=== PATIENT | female | born 1985 | race Caucasian/White ===

== ENCOUNTER 2017-04-23 04:00 | Emergency (ER) | payer MEDICAID ==
[~2017-04-23] VITALS: Ht 165.1 cm; Wt 85.0 kg
[~2017-04-23 04:00] MED LIST: ACET500C5 PO; IRON1TAB78 PO; PREN1TAB31 PO
[2017-04-23 04:05] VITALS: Ht 165.1 cm; Wt 85.0 kg
--- NOTE | 2017-04-23 04:57 | ERD ---
ER Documentation Chief Complaint Date/Time DATE: 04/23/17 TIME: 04:48 Chief Complaint swelling right side of neck x 3 days. also c/o fever (EMMANUEL SILVERIO) HPI 31-year-old female presents emergency department for right neck swelling for 3 days. She also complains of fever and difficulty swallowing. Denies headache, dizziness, blurred vision, shoulder pain, chest pain, back pain , abdominal pain, nausea, vomiting, diarrhea, constipation, urinary symptoms, , possibility of being , loss of bowel bladder control, recent exposure to any illness, recent antibiotic use in the last 3 months, numbness or tingling sensation. No known drug allergies. No past medical history. No surgeries. Does not take any prescription medication at home. Social: Not working at this time. Denies smoking, use of alcohol, use of illegal drugs. (EMMANUEL SILVERIO) ROS All systems reviewed and are negative except as per history of present illness. (EMMANUEL SILVERIO) Medications Home Meds Active Scripts Ondansetron Hcl* (Zofran*) 4 Mg Tablet, 4 MG PO Q8H Y for NAUSEA AND/OR VOMITING , #30 TAB Prov:EMMANUEL SILVERIO 04/23/17 Acetaminophen* (Tylophen*) 500 Mg Capsule, 1 CAP PO Q6H Y for PAIN AND OR ELEVATED TEMP, #20 CAP Prov:EMMANUEL SILVERIO F 04/23/17 Ibuprofen* (Motrin*) 800 Mg Tab, 800 MG PO Q8 Y for PAIN AND OR ELEVATED TEMP, # 30 TAB Prov:EMMANUEL SILVERIO 04/23/17 Clindamycin Hcl* (Clindamycin Hcl*) 300 Mg Capsule, 300 MG PO TID for 10 Days, CAP Prov:EMMANUEL SILVERIO F 04/23/17 Acetaminophen* (Tylophen*) 500 Mg Capsule, 2 CAP PO Q8H Y for PAIN AND OR ELEVATED TEMP, #20 CAP Prov:JENNIFER ABRAMS MD 06/21/15 Reported Medications Iron,Carbonyl/Vit C/Vit B12/Fa (IRON 100 PLUS TABLET) 1 Each Tablet, 1 EACH PO DAILY 04/27/13 Vits #90-Iron Fum-FA ( Formula) 1 Each Tablet, 1 EACH PO DAILY 04/27/13 Allergies Allergies: Coded Allergies: No Known Allergies (Verified Allergy, Unknown, 04/23/17) PMhx/Soc Hx Alcohol Use: No Hx Substance Use: No Hx Tobacco Use: No (EMMANUEL SILVERIO) Physical Exam Vitals Vital Signs Date Time Temp Pulse Resp B/P Pulse Ox O2 Delivery O2 Flow Rate FiO2 04/23/17 08:49 98.3 73 18 107/55 97 Room Air 04/23/17 04:05 103.2 106 20 134/75 97 (KENNEDY BARR MD) Physical Exam Const: [] Head: Atraumatic Eyes: Normal Conjunctiva ENT: Normal External Ears. Nose and Mouth. Right ear: TM is erythematous. No discharge. No bleeding. Left ear: TM is not erythematous. No bleeding. No discharge. No hearing loss bilaterally. Throat: Uvula is in midline and mildly displaced. Right tonsils +3 with redness and exudate. Left tonsil is + 2 with redness and exudate. Neck: Full range of motion..~ No meningismus. Resp: Clear to auscultation bilaterally Cardio: Regular rate and rhythm, no murmurs Abd: Soft, non tender, non distended. Normal bowel sounds Skin: No petechiae or rashes Back: No midline or flank tenderness Ext: No cyanosis, or edema Neur: Awake and alert Psych: Normal Mood and Affect (EMMANUEL SILVERIO) Result Diagram: 04/23/1752304/23/17523 Results 24 hrs Laboratory Tests Test 04/23/17 05:24 White Blood Count 9.610^3/ul Red Blood Count 4.6810^6/ul Hemoglobin 13.3g/dl Hematocrit 40.3% Mean Corpuscular Volume 86.1fl Mean Corpuscular Hemoglobin 28.4pg Mean Corpuscular Hemoglobin Concent 33.0g/dl Red Cell Distribution Width 12.7% Platelet Count 53197^3/UL Mean Platelet Volume 10.3fl Neutrophils % 77.4% Lymphocytes % 13.6% Monocytes % 7.9% Eosinophils % 0.4% Basophils % 0.3% Nucleated Red Blood Cells % 0.0/100WBC Neutrophils # 7.410^3/ul Lymphocytes # 1.310^3/ul Monocytes # 0.810^3/ul Eosinophils # 0.010^3/ul Basophils # 0.010^3/ul Nucleated Red Blood Cells # 0.010^3/ul Sodium Level 140mmol/L Potassium Level 3.4mmol/L Chloride Level 109mmol/L Carbon Dioxide Level 20mmol/L Anion Gap 14 Blood Urea Nitrogen 14mg/dl Creatinine 0.79mg/dl Glucose Level 109mg/dl Lactic Acid Level 0.9mmol/L Calcium Level 8.4mg/dl Total Bilirubin 0.4mg/dl Direct Bilirubin 0.00mg/dl Indirect Bilirubin 0.4mg/dl Aspartate Amino Transf (AST/SGOT) 18IU/L Alanine Aminotransferase (ALT/SGPT) 33IU/L Alkaline Phosphatase 71IU/L Total Protein 7.8g/dl Albumin 4.3g/dl Globulin 3.50g/dl Albumin/Globulin Ratio 1.22 Current Medications Medications (Trade) Dose Ordered Sig/Mark Route PRN Reason Start Time Stop Time Status Last Admin Dose Admin Methylprednisolone Sodium Succinate 125 mg 125 mg ONCE ONCE IV 04/23/17 05:30 04/23/17 05:31 DC 04/23/17 05:58 Ceftriaxone Sodium (Rocephin) 50 ml @ 100 mls/hr ONCE ONCE IVPB 04/23/17 05:30 04/23/17 05:59 DC 04/23/17 05:58 Ondansetron HCl (Zofran Inj) 4 mg ONCE STAT IV 04/23/17 05:27 04/23/17 05:29 DC 04/23/17 05:58 Morphine Sulfate (morphine) 4 mg STK-MED ONCE .ROUTE 04/23/17 05:49 04/23/17 05:50 DC Acetaminophen (Tylenol Tab) 1,000 mg ONCE STAT PO 04/23/17 06:13 04/23/17 06:15 DC 04/23/17 06:25 Ibuprofen (Motrin) 800 mg ONCE ONCE PO 04/23/17 06:30 04/23/17 06:31 DC 04/23/17 06:25 (KENNEDY BARR MD) Procedures/MDM 31-year-old female presents emergency department for right neck swelling for 3 days. She also complains of fever and difficulty swallowing. Denies headache, dizziness, blurred vision, shoulder pain, chest pain, back pain , abdominal pain, nausea, vomiting, diarrhea, constipation, urinary symptoms, , possibility of being , loss of bowel bladder control, recent exposure to any illness, recent antibiotic use in the last 3 months, numbness or tingling sensation. No known drug allergies. No past medical history. No surgeries. Does not take any prescription medication at home. Social: Not working at this time. Denies smoking, use of alcohol, use of illegal drugs. Physical exam: Right ear: TM is erythematous. No discharge. No bleeding. Left ear: TM is not erythematous. No bleeding. No discharge. No hearing loss bilaterally. Throat: Uvula is in midline and mildly displaced. Right tonsils +3 with redness and exudate. Left tonsil is +2 with redness and exudate. Respirations even and unlabored. Lung sounds are clear to auscultation. Disease process was explained to the patient and family member. They both verbalized understanding and agreed with it diagnostic test/exam, treatment, plan of care. Case was discussed with supervising physician, Dr. Ron Lopez who agreed in my medical decision making to workup the patient. Blood works: Reviewed. Treatment: Ceftriaxone 1 g IV. Solu-Medrol 125 mg IV. Zofran 4 mg IV. Tylenol. Motrin. Reevaluation: No difficulty swallowing. Tolerating secretions. Patent airway. Lung sounds are clear to auscultation. Case was discussed with supervising physician, Dr. Kennedy Barr who also examined the patient. Differential diagnosis: Peritonsillar abscess versus strep throat versus pharyngitis Final diagnosis: Strep throat Prescription: Clindamycin. Motrin. Tylenol. Zofran. Follow-up with PCP in 24-48 hours. PCP to refer patient to ENT in 24-48 hours. Come back here in ED for any new symptoms or worsening of symptoms. All questions and concerns are answered. Patient and family member verbalized understanding. Hemodynamically stable on discharge. (EMMANUEL SILVERIO) Attending addendum: I examined the patient and see no signs of peritonsillar abscess. She does have exudative tonsillitis of the right tonsil and tender anterior cervical lymph node. There is no trismus or sub-mandibular induration. There is no voice change or drooling. I did note 3 very small ulcerations on the soft palate and tonsillar pillar which suggest that this may be a viral pharyngitis, but given the high fever and exudates, I believe it is reasonable to treat the patient with a course of antibiotics. (KENNEDY BARR MD) Departure Diagnosis: Primary Impression: Strep sore throat Condition: Stable Additional Instructions: Follow-up with PCP in 24-48 hours. PCP to refer patient to ENT in 24-48 hours. Come back here in ED for any new symptoms or worsening of symptoms. All questions and concerns are answered. Patient and family member verbalized understanding. EMMANUEL SILVERIO Apr 23, 2017 04:57 KENNEDY BARR MD Apr 23, 2017 14:45
[2017-04-23] MEDS ORDERED: ONDANSETRON 4 MG INJ IV STA (05:27)
[2017-04-23] MEDS ORDERED: METHYLPREDNISOLONE 125 MG INJ IV ONE (05:30)
[2017-04-23] MEDS ORDERED: CEFTRIAXONE 1 GM/50 ML (PMX) 50 ML IVPB ONE (05:30)
[2017-04-23] MEDS ORDERED: morphine 4 MG/ML VIAL ONE (05:49)
[2017-04-23 05:59] LABS: BASOPHILS % 0.3 % (0.0-2.0); EOSINOPHILS % 0.4 % (0.0-7.0); HEMATOCRIT 40.3 % (37.0-47.0); HEMOGLOBIN 13.3 g/dl (12.0-16.0); LYMPHOCYTES # 1.3 10^3/ul (0.8-2.9); LYMPHOCYTES % 13.6 % (15.0-51.0); MEAN CORPUSCULAR HEMOGLOBIN 28.4 pg (29.0-33.0); MEAN CORPUSCULAR VOLUME 86.1 fl (82.0-101.0); MEAN PLATELET VOLUME 10.3 fl (7.4-10.4); MONOCYTE # 0.8 10^3/ul (0.3-0.9); MONOCYTES % 7.9 % (0.0-11.0); NEUTROPHIL # 7.4 10^3/ul (1.6-7.5); NEUTROPHILS % 77.4 % (39.0-77.0); PLATELET COUNT 229 10^3/UL (140-415); RED BLOOD COUNT 4.68 10^6/ul (4.20-5.40); RED CELL DISTRIBUTION WIDTH 12.7 % (11.5-14.5); WHITE BLOOD COUNT 9.6 10^3/ul (4.8-10.8)
[2017-04-23] MEDS ORDERED: ACETAMINOPHEN 500 MG TAB PO STA (06:13)
[2017-04-23] MEDS ORDERED: CLIN-73 PO (06:26)
[2017-04-23] MEDS ORDERED: IBUP800T25 PO (06:26)
[2017-04-23] MEDS ORDERED: ONDA4TAB8 PO (06:27)
[2017-04-23] MEDS ORDERED: ACET500C5 PO (06:27)
[2017-04-23] MEDS ORDERED: IBUPROFEN 800 MG TAB PO ONE (06:30)
--- NOTE | 2017-04-23 06:41 | RADRPT ---
PROCEDURE: XR Chest. CLINICAL INDICATION: cough TECHNIQUE: PA and Lateral views of the chest were obtained. COMPARISON: None. FINDINGS: The heart is within normal limits in size. There is no evidence of pulmonary vascular congestion acu te lung consolidation pleural effusions and pneumothorax. IMPRESSION: No evidence of acute cardiopulmonary disease. RPTAT:AAJJ Physician Jun Date Time Electronically viewed and signed by Freida Valderrama Physician on 04/23/2017 06:41 BM/
[2017-04-23 07:00] LABS: ALBUMIN 4.3 g/dl (3.3-4.9); ALBUMIN/GLOBULIN RATIO 1.22; BILIRUBIN,INDIRECT 0.4 mg/dl (0-1.1); BILIRUBIN,TOTAL 0.4 mg/dl (0.2-1.3); CALCIUM 8.4 mg/dl (8.4-10.2); CREATININE 0.79 mg/dl (0.44-1.00); POTASSIUM 3.4 mmol/L (3.5-5.1); TOTAL PROTEIN 7.8 g/dl (6.1-8.1)
[2017-04-23 08:49] VITALS: BP 107/55; PULSE 73; RESP 18; TEMP 98.3
--- NOTE | 2017-04-23 13:00 | EN ---
Date/Time of Note Date/Time of Note DATE: 04/23/17 TIME: 12:55 ER Progress Note 31-year-old female patient with no significant past medical history was signed out to me by KHALIF Frost pending chest x-ray results. PROCEDURE: XR Chest. CLINICAL INDICATION: cough TECHNIQUE: PA and Lateral views of the chest were obtained. COMPARISON: None. FINDINGS: The heart is within normal limits in size. There is no evidence of pulmonary vascular congestion acute lung consolidation pleural effusions and pneumothorax. IMPRESSION: No evidence of acute cardiopulmonary disease. RPTAT:AAJJ Physician Jun Date Time Electronically viewed and signed by Physician Jun on 04/23/2017 06:41 Dr. Méndez examined the patient and saw no signs of peritonsillar abscess. Patient does have exudative tonsillitis of the right tonsil and tender anterior cervical lymph node. There is no trismus or sub-mandibular induration. There is no voice change or drooling. No signs of retropharyngeal abscess of Jesús' s angina. Patient verbalizes that she feels better. Patient will be discharged with Clementine Herring and Dr. Méndez's discharge instructions. Discharge medications: Tylenol, Ibuprofen, Clindamycin, Zofran. Patient is hemodynamically stable. BRYANT FELDER PA-C Apr 23, 2017 13:00
== END 2017-04-23 08:50 | disposition home or self-care (01) ==
LOC: FTE 04:00
DX: J02.0 Streptococcal pharyngitis (principal)
CPT/HCPCS: 36415; 71020; 80053; 83605; 85025; 87040; 96374; J0696; J2270; J2405; J2930; Z7502; Z7610